=== PATIENT | female | born 2000 | race Caucasian/White ===

== ENCOUNTER 2021-05-05 15:25 | Emergency (ER) | payer MEDICAID ==
[~2021-05-05] VITALS: Ht 157.5 cm; Wt 59.1 kg
[~2021-05-05 15:25] MED LIST: ACET-66 PO
[2021-05-05 15:34] VITALS: BP 124/73
== END 2021-05-05 19:11 | disposition home or self-care (01) ==
LOC: EMS 15:27
DX: H11.33 Conjunctival hemorrhage, bilateral (principal)
CPT/HCPCS: 99282; Z7502

== ENCOUNTER 2023-05-23 11:06 | Emergency (ER) | payer MEDICAID ==
[~2023-05-23] VITALS: Ht 160 cm; Wt 67.7 kg
[2023-05-23 11:14] VITALS: BP 102/59; PULSE 104; RESP 16; TEMP 98.1
[2023-05-23] MEDS ORDERED: BENZ-227 PO (11:48)
== END 2023-05-23 12:04 | disposition home or self-care (01) ==
LOC: EMS 11:12
DX: J40 Bronchitis, not specified as acute or chronic (principal)
CPT/HCPCS: 71045; 99283